=== PATIENT | female | born 2000 | race Two or more races ===

== ENCOUNTER 2021-10-02 21:39 | Emergency (ER) | payer BC ==
[~2021-10-02] VITALS: Ht 162.6 cm; Wt 59.0 kg
--- NOTE | 2021-10-02 21:50 | NUR ---
BIBFRIEND C/O MELO FOR THE PAST FEW HOURS. - N/V. PLACED COMFORTABLY IN BED. VITALS CHECKED.
[2021-10-02] MEDS ORDERED: ACETAMINOPHEN 325 MG TABLET PO ONE (22:30)
[2021-10-02] MEDS ORDERED: LORAZEPAM INJ 2 MG/ML VIAL IV ONE (22:30)
[2021-10-02] MEDS ORDERED: PROCHLORPERAZINE EDISYLATE 10 MG/2 ML VIAL IM/IV ONE (22:30)
[2021-10-02] MEDS ORDERED: KETOROLAC TROMETHAMINE INJ 30 MG/ML VIAL IV ONE (22:30)
[2021-10-02] MEDS ORDERED: IV NS 0.9% 1,000 ML BAG IV ONE (22:30)
[2021-10-02] MEDS ORDERED: ACETAMINOPHEN ES 500 MG TABLET ONE (22:31)
[2021-10-02] MEDS ORDERED: PROCHLORPERAZINE EDISYLATE 10 MG/2 ML VIAL ONE (22:31)
[2021-10-02] MEDS ORDERED: KETOROLAC TROMETHAMINE 15 MG/ML VIAL ONE (22:31)
[2021-10-02] MEDS ORDERED: LORAZEPAM INJ 2 MG/ML VIAL ONE (22:31)
--- NOTE | 2021-10-02 22:49 | NUR ---
IV LINE ESTABLISHED, [id number]
[2021-10-02 23:42] VITALS: BP 135/76
== END 2021-10-02 23:43 | disposition home or self-care (01) ==
LOC: ER 21:56
DX: R51.9 Headache, unspecified (principal); H53.143 Visual discomfort, bilateral; Z60.2 Problems related to living alone
CPT/HCPCS: 96361; 96374; 96375; 99284; J0780; J1885; J2060; J7030